=== PATIENT | male | born 1960 | race Caucasian/White ===

== ENCOUNTER 2020-01-18 02:45 | Emergency (ER) | payer MEDICAID, OTHER ==
[2020-01-18 03:13] LABS: #Basophils 0.2 thou/uL (0.0-0.2); #Eosinphils 0.1 thou/uL (0.0-0.7); #Lymphocytes 0.6 thou/uL (1.20-3.40); #Monocytes 0.7 thou/uL (0.11-0.59); #Neutrophils 9.5 thou/uL (1.40-6.50); %Basophils 2.1 % (0.0-1.0); %Eosinophils 1.4 % (0.0-10.0); %Lymphocytes 5.1 % (21.0-51.0); %Monocytes 6.3 % (0.0-10.0); %Neutrophils 85.1 % (42.0-75.0); Hemoglobin 14.1 g/dL (14.0-18.0); Mean Corpuscular HGB CONC 34.5 g/dL (32.0-36.0); Mean Corpuscular Hemoglobin 33.9 pg (27.0-31.0); Mean Corpuscular Volume 98.2 fL (78.0-98.0); Mean Platelet Volume 5.9 fL (7.4-10.4); Platelet Count 302 thou/uL (130-400); RBC Distribution Width 11.5 % (11.5-14.5); Red Blood Cell (RBC) Count 4.14 mill/uL (4.70-6.10); White Blood Cell (WBC) Count 11.1 thou/uL (4.8-10.8)
[2020-01-18] MEDS ORDERED: Racepinephrine 2.25% 0.5 ML NEB ONE (03:15)
[2020-01-18] MEDS ORDERED: Sodium Chloride For Inhalation 0.9% 3 ML NEB ONE (03:15)
[2020-01-18 03:16] LABS: MDiff Complete? YES; Manual Diff?? NO
[2020-01-18] MEDS ORDERED: methylPREDNISolone Sod Succ/PF 125 MG/2 ML VIAL ONE (03:16)
[2020-01-18] MEDS ORDERED: cefTRIAXone\\ROCEPHIN 2 GM VIAL ONE (03:22)
[2020-01-18] MEDS ORDERED: Azithromycin 500 MG VIAL ONE (03:22)
[2020-01-18] MEDS ORDERED: Magnesium 2 GM/50 ML BAG (IN WATER) ONE (03:22)
[2020-01-18 03:30] LABS: Critical Call Chem Troponin I NOT CALLED
[2020-01-18] MEDS ORDERED: Fentanyl 100 MCG/2 ML VIAL ONE ×2 (04:15→05:09)
[2020-01-18] MEDS ORDERED: Midazolam HCl 5 mg/ml Vial ONE (04:15)
[2020-01-18] MEDS ORDERED: Ketamine 50 MG/ML (10ML VIAL) ONE (04:54)
[2020-01-18 04:59] LABS: ALT (SGPT) 26 U/L (8-55); AST (SGOT) 22 U/L (5-34); Alkaline Phosphatase 121 U/L (40-110); Anion Gap 15 mmol/L (10-20); BUN (Urea Nitrogen) 8 mg/dL (8.4-25.7); Calc. Creatinine Clearance 0 mL/min (70-130); Calcium 8.8 mg/dL (7.8-10.44); Carbon Dioxide 27 mmol/L (23-31); Chloride 82 mmol/L (98-107); Estimated GFR-MDRD Greater than 90; Globulin 2.8 g/dL (2.4-3.5); Glucose 105 mg/dL (80-115); Potassium 3.5 mmol/L (3.5-5.1); Protein, Total 6.8 g/dL (5.8-8.1)
[2020-01-18 05:02] LABS: Sodium 120 mmol/L (136-145)
[2020-01-18 05:05] LABS: Lactic Acid 1.5 mmol/L (0.5-2.2)
[2020-01-18 05:07] LABS: Critical Call Chem-Lactate NOT CALLED
--- NOTE | 2020-01-18 08:39 | RAD ---
RADIOGRAPH NECK SOFT TISSUES 2 VIEWS: Date: 01/18/2020 Time: 0313 hours HISTORY: 59-year-old male with throat pain and dyspnea with stridor. FINDINGS: Slight thickening of the prevertebral soft tissues. Supraglottic airway is patent. There is narrowing of the subglottic larynx and soft tissue fullness of the larynx. IMPRESSION: Evidence for laryngeal edema. POS: [facility]
--- NOTE | 2020-01-18 08:41 | RAD ---
PA AND LATERAL VIEWS OF CHEST: Date: 01/18/2020 HISTORY: Shortness of breath and stridor. FINDINGS: Comparison made with exam of 06/14/2019. The heart size is normal. Changes of COPD are again seen. No focal areas of consolidation, pneumothor aces, or pleural effusions are identified. IMPRESSION: No acute process. POS: [facility]
--- NOTE | 2020-01-18 08:43 | RAD ---
RADIOGRAPH CHEST 1 VIEW: Date: 01/18/2020 Time: 0443 HOURS HISTORY: 59-year-old male with dyspnea and stridor. Status post intubation. COMPARISON: 01/18/2020 at 0309 hours. FINDINGS: This is a supine image, which would be insensitive for pneumothorax detection. There is a new endotra cheal tube with distal tip slightly superior to the level of the clavicular heads, approximately 9.5 cm superior to the james. No widening of the mediastinum. No cardiomegaly. Visualized lung leija ar e clear. Lateral costophrenic angles are excluded from the field of view. IMPRESSION: 1. Status post intubation with endotracheal tube at the cervicothoracic junction. 2. The lungs remain clear. JN [] POS: [facility]ET
== END 2020-01-18 05:15 | disposition short-term general hospital (02) ==
LOC: BURERS 02:45
DX: T81.30XA Disruption of wound, unspecified, initial encounter (principal); J98.8 Other specified respiratory disorders; F10.10 Alcohol abuse, uncomplicated; I48.91 Unspecified atrial fibrillation; E87.1 Hypo-osmolality and hyponatremia; C76.0 Malignant neoplasm of head, face and neck; F17.210 Nicotine dependence, cigarettes, uncomplicated; J44.9 Chronic obstructive pulmonary disease, unspecified; Z79.899 Other long term (current) drug therapy
CPT/HCPCS: 31500; 70360; 71045; 71046; 80053; 83605; 83880; 84484; 85025; 85379; 93005; 94760; 96361; 96365; 96375; J0456; J0696; J2250; J2930; J3010; J3475; L0120